=== PATIENT | female | born 1975 | race American Indian/Alaskan Native ===

== ENCOUNTER 2019-09-20 23:29 | Emergency (ER) | payer MEDICAID ==
--- NOTE | 2019-09-21 02:30 | XRay Report ---
CHEST 2 VIEWS INDICATION / CLINICAL INFORMATION: Cough and wheezing. COMPARISON: None available. FINDINGS: SUPPORT DEVICES: None. HEART / MEDIASTINUM: The heart size is borderline. Pulmonary vasculature is normal. There is mild aor tic tortuosity without aneurysm. LUNGS / PLEURA: No significant pulmonary or pleural abnormality. No pneumothorax. ADDITIONAL FINDINGS: No significant additional findings. IMPRESSION: No acute pulmonary disease. Signer Name: Richar Lowe MD Signed: 09/21/2019 2:26 AM Workstation Name: [id number]
[2019-09-21] MEDS ORDERED: IPRATROPIUM/ALBUTEROL SULFATE 3 ML AMPUL.NEB IH ONE ×2 (04:02→05:12)
[2019-09-21] MEDS ORDERED: methylPREDNISolone Sod Succinate 125 MG/2 ML INJ IM ONE (04:02)
--- NOTE | 2019-09-21 05:04 | Emergency Department Report ---
- General Chief Complaint: Upper Respiratory Infection Stated Complaint: CHEST PAIN,COUGH,WHEEZING Source: patient Mode of arrival: Ambulatory Limitations: No Limitations - History of Present Illness Initial Comments: Patient is a 44-year-old female with a history of chronic bronchitis and GERD who presented to the ED with complaint of acute onset of persistent sinus congestion, cough, wheezing, shortness of breath and tightness. Patient states that the symptoms have worsened the last 8 hours. Patient denies fever, chills, nausea, vomiting, fever, chills, headache, abdominal pain, sore throat or sy ncope Complaint: cough, sore throat, rhinorrhea, nasal congestion, sinus pain -: Sudden, days(s) (2) Severity: severe Severity scale (0 -10): 7 Quality: sharp, aching Consistency: constant Improves With: nothing Worsens With: nothing Context: sick contacts Associated Symptoms: denies other symptoms, fever, chills, headache, rhinorrhea, nasal congestion, sore throat, cough, shortness of breath. denies: myalgias, diaphoresis, chest pain, nausea, vomiting, confusion, weight loss, epistaxis, hoarseness Treatments Prior to Arrival: none - Related Data Previous Rx's Medication Instructions Recorded Last Taken Type Benzonatate [Tessalon Perles] 100 mg PO Q8HR #30 capsule 09/21/19 Unknown Rx Cetirizine HCl [Zyrtec 10mg tab] 10 mg PO DAILY #30 tablet 09/21/19 Unknown Rx Doxycycline Hyclate 100 mg PO Q12H #20 tablet.dr 09/21/19 Unknown Rx Prednisone [predniSONE 10 mg 10 mg PO .TAPER #21 tab.ds.pk 09/21/19 Unknown Rx (6-Day Pack, 21 Tabs)] Allergies Allergy/AdvReac Type Severity Reaction Status Date / Time latex Allergy Anaphylaxis Verified 09/21/19 02:04 ED Review of Systems ROS: Stated complaint: CHEST PAIN,COUGH,WHEEZING Other details as noted in HPI Constitutional: denies: chills, fever Eyes: denies: eye pain, eye discharge, vision change ENT: throat pain, congestion Respiratory: no symptoms reported, cough, shortness of breath, wheezing Cardiovascular: denies: as per HPI, chest pain, palpitations, dyspnea on exertion, edema, paroxysmal nocturnal dyspnea Endocrine: no symptoms reported Gastrointestinal: denies: abdominal pain, nausea, diarrhea Genitourinary: denies: urgency, dysuria, discharge Musculoskeletal: denies: back pain, joint swelling, arthralgia Skin: denies: rash, lesions Neurological: denies: headache, weakness, paresthesias Psychiatric: denies: anxiety, depression Hematological/Lymphatic: denies: easy bleeding, easy bruising ED Past Medical Hx - Past Medical History Previous Medical History?: Yes Hx GERD: Yes Additional medical history: Psoriasis - Surgical History Past Surgical History?: Yes Hx Cholecystectomy: Yes Additional Surgical History: C-sections X 2 - Social History Smoking Status: Former Smoker Substance Use Type: None - Medications Home Medications: Home Medications Medication Instructions Recorded Confirmed Last Taken Type Benzonatate [Tessalon Perles] 100 mg PO Q8HR #30 capsule 09/21/19 Unknown Rx Cetirizine HCl [Zyrtec 10mg tab] 10 mg PO DAILY #30 tablet 09/21/19 Unknown Rx Doxycycline Hyclate 100 mg PO Q12H #20 tablet.dr 09/21/19 Unknown Rx Prednisone [predniSONE 10 mg 10 mg PO .TAPER #21 tab.ds.pk 09/21/19 Unknown Rx (6-Day Pack, 21 Tabs)] ED Physical Exam - General Limitations: No Limitations General appearance: alert, in no apparent distress - Head Head exam: Present: atraumatic, normocephalic, normal inspection - Eye Eye exam: Present: normal appearance, PERRL, EOMI Pupils: Present: normal accommodation - ENT ENT exam: Present: normal exam, normal orophraynx, mucous membranes moist, TM's normal bilaterally, other (grossly congested nasal passages) - Neck Neck exam: Present: normal inspection, full ROM - Respiratory Respiratory exam: Present: wheezes (moderately diffuse coarse wheezes throughout). Absent: respiratory distress, rales, chest wall tenderness - Cardiovascular Cardiovascular Exam: Present: regular rate, normal rhythm, normal heart sounds. Absent: systolic murmur, diastolic murmur, rubs, gallop - GI/Abdominal GI/Abdominal exam: Present: soft, normal bowel sounds. Absent: tenderness, guarding, hyperactive bowel sounds, organomegaly - Extremities Exam Extremities exam: Present: normal inspection, full ROM, normal capillary refill - Back Exam Back exam: Present: normal inspection, full ROM. Absent: tenderness, muscle spasm, paraspinal tenderness - Neurological Exam Neurological exam: Present: alert, oriented X3, CN II-XII intact, normal gait - Psychiatric Psychiatric exam: Present: normal affect, normal mood - Skin Skin exam: Present: warm, dry, intact, normal color. Absent: rash ED Course Vital Signs 09/21/19 09/21/19 09/21/19 01:13 02:06 04:34 Temperature 98.5 F Pulse Rate 50 L Pulse Rate [ 56 L Bilateral] Respiratory 18 Rate Respiratory 22 Rate [Bilateral ] Blood Pressure 139/59 O2 Sat by Pulse 97 98 Oximetry ED Medical Decision Making - Radiology Data Radiology results: report reviewed, image reviewed Findings [facility] [address] [place] [address] XRay Report Signed Patient: SANDIE MONROE MR#: [id number] : 1975 Acct:[id number] Age/Sex: 44 / F ADM Date: 09/20/19 Loc: ED Attending Dr: Ordering Physician: SARAH HOSKINS Date of Service: 09/21/19 Procedure(s): XR chest routine 2V Accession Number(s): [id number] cc: SARAH HOSKINS Fluoro Time In Minutes: CHEST 2 VIEWS INDICATION / CLINICAL INFORMATION: Cough and wheezing. COMPARISON: None available. FINDINGS: SUPPORT DEVICES: None. HEART / MEDIASTINUM: The heart size is borderline. Pulmonary vasculature is normal. There is mild aortic tortuosity without aneurysm. LUNGS / PLEURA: No significant pulmonary or pleural abnormality. No pneumothorax. ADDITIONAL FINDINGS: No significant additional findings. IMPRESSION: No acute pulmonary disease. Signer Name: Richar Lowe MD Signed: 09/21/2019 2:26 AM Workstation Name: [id number] Transcribed By: RT Dictated By: Richar Lowe MD Electronically Authenticated By: Richar Lowe MD Signed Date/Time: 09/21/19 0226 - Medical Decision Making This is a 44-year-old female with a history of chronic bronchitis and GERD who presented to the ED with complaint of acute onset of persistent sinus congestion, cough, wheezing, shortness of breath and tightness. In the ED, the patient is alert and oriented 3 and distention and distress. Chest x-ray shows no acute cardiopulmonary abnormalities or pneumonitis. Patient was treated with DuoNeb and Solu-Medrol in the ED. On reevaluation, patient's wheezing resolved and was discharged home on medications. Patient already has a prescription for albuterol inhaler at home said to be picked up later today in the pharmacy. Patient was advised to return to the ED immediately if symptoms get worse. Patient was otherwise advised to follow up with her primary care physician's 7- 10 days for reevaluation. - Differential Diagnosis URI; Bronchitis; Pneumonia Critical care attestation.: If time is entered above; I have spent that time in minutes in the direct care of this critically ill patient, excluding procedure time. ED Disposition Clinical Impression: Acute upper respiratory infection Acute bronchitis Qualifiers: Bronchitis organism: unspecified organism Qualified Code(s): J20.9 - Acute bronchitis, unspecified Disposition: TO HOME OR SELFCARE Is pt being admited?: No Does the pt Need Aspirin: No Condition: Stable Instructions: Acute Bronchitis (ED), Upper Respiratory Infection (ED) Additional Instructions: Take medications with food, drink plenty of fluids and follow-up with your primary care physician in 5-7 days for reevaluation. Return to the ED immediately if symptoms get worse. Prescriptions: Doxycycline Hyclate 100 mg PO Q12H #20 tablet. Prednisone [predniSONE 10 mg (6-Day Pack, 21 Tabs)] 10 mg PO .TAPER #21 tab.ds.pk Benzonatate [Tessalon Perles] 100 mg PO Q8HR #30 capsule Cetirizine HCl [Zyrtec 10mg tab] 10 mg PO DAILY #30 tablet Referrals: Edgar CARPIO [Other] - 3-5 Days Time of Disposition: 05:00 Print Language: FRENCH
[2019-09-21 05:51] VITALS: BP 128/72
== END 2019-09-21 05:54 | disposition home or self-care (01) ==
LOC: ED 23:29
DX: J20.9 Acute bronchitis, unspecified (principal); J06.9 Acute upper respiratory infection, unspecified; K21.9 Gastro-esophageal reflux disease without esophagitis; Z87.891 Personal history of nicotine dependence; Z90.49 Acquired absence of other specified parts of digestive tract; Z79.899 Other long term (current) drug therapy; Z91.041 Radiographic dye allergy status
CPT/HCPCS: 71046; 94640; 96372; 99283; J2930; 94644